=== PATIENT | female | born 1985 | race Two or more races ===

== ENCOUNTER 2018-01-03 11:28 | Emergency (ER) | payer MEDICAID ==
[~2018-01-03] VITALS: Ht 157.5 cm; Wt 127.0 kg
[2018-01-03 12:45] LABS: Eosinophils # (auto) 0.2 uL; Lymphocytes # (auto) 2.4 uL; Neutrophils # (auto) 10.2 uL; Nucleated Red Blood Cells % 0.1 %
[2018-01-03 12:48] LABS: Basophils # (auto) 0.1 uL; Basophils % (auto) 0.4 % (0.0-2.0); Eosinophils % (auto) 1.2 % (0.0-7.0); Hematocrit 42.4 % (36.0-46.0); Hemoglobin 13.3 g/dL (12.2-16.2); Lymphocytes % (auto) 17.5 % (10.0-50.0); Mean Corpuscular Hgb Conc. 31.5 g/dL (32.0-36.0); Mean Corpuscular Volume 79.4 fL (80.0-100.0); Monocytes # (auto) 0.7 uL; Monocytes % (auto) 5.2 % (0.0-12.0); Neutrophils % (auto) 75.7 % (37.0-80.0); Platelet Count (auto) 361 10^3/uL (140-450); Red Blood Cells 5.34 10^6/uL (4.0-5.20); Red Cell Distribution Width 17.7 % (11.8-14.3); White Blood Cell 13.5 10^3/uL (4.4-10.8)
[2018-01-03] MEDS ORDERED: ASPirin 81 mg TAB PO ONE (13:15)
[2018-01-03 13:18] LABS: Albumin 3.4 g/dL (3.4-5.0); BUN/Creatinine Ratio 20.5; Calcium 8.8 mg/dL (8.5-10.1); Magnesium 1.9 mg/dL (1.6-2.6)
[2018-01-03 13:21] LABS: Bilirubin, Total 0.2 mg/dL (0.2-1.0); Total Protein 8.6 g/dL (6.4-8.2)
[2018-01-03 16:18] VITALS: BP 150/85
== END 2018-01-03 16:22 | disposition home or self-care (01) ==
LOC: ER 11:28
DX: J40 Bronchitis, not specified as acute or chronic (principal); I11.0 Hypertensive heart disease with heart failure; E11.9 Type 2 diabetes mellitus without complications; I50.9 Heart failure, unspecified; Z79.82 Long term (current) use of aspirin; Z87.891 Personal history of nicotine dependence
CPT/HCPCS: 36415; 71046; 80053; 83735; 83880; 84484; 85025; 93005

== ENCOUNTER 2018-04-27 15:23 | Inpatient (IN) | payer MEDICAID ==
[~2018-04-27] VITALS: Ht 157.5 cm; Wt 125.1 kg
[2018-04-27 16:46] LABS: Eosinophils # (auto) 0.2 uL; Eosinophils % (auto) 1.7 % (0.0-7.0); Lymphocytes # (auto) 2.3 uL; Neutrophils % (auto) 74.9 % (37.0-80.0)
[2018-04-27 16:48] LABS: Basophils # (auto) 0 uL; Basophils % (auto) 0.4 % (0.0-2.0); Hematocrit 34.7 % (36.0-46.0); Hemoglobin 11.1 g/dL (12.2-16.2); Lymphocytes % (auto) 17.2 % (10.0-50.0); Mean Corpuscular Hgb Conc. 32.1 g/dL (32.0-36.0); Mean Corpuscular Volume 84.2 fL (80.0-100.0); Monocytes # (auto) 0.8 uL; Monocytes % (auto) 5.8 % (0.0-12.0); Neutrophils # (auto) 9.8 uL; Nucleated Red Blood Cells % 0.3 %; Platelet Count (auto) 341 10^3/uL (140-450); Red Blood Cells 4.12 10^6/uL (4.0-5.20); White Blood Cell 13.1 10^3/uL (4.4-10.8)
[2018-04-27 17:01] LABS: Albumin 2.9 g/dL (3.4-5.0); BUN/Creatinine Ratio 23.5; Bilirubin, Total 0.5 mg/dL (0.2-1.0); Calcium 8.3 mg/dL (8.5-10.1); Magnesium 2.3 mg/dL (1.6-2.6); Potassium 3.7 mmol/L (3.5-5.1)
[2018-04-28] MEDS ORDERED: FUROSEMIDE 20 MG/2 ML VIAL IV ONE ×3 (03:15→05:45)
[2018-04-28] MEDS ORDERED: ACETAMINOPHEN 500 MG TAB PO PRN (04:45)
[2018-04-28 05:42] LABS: Basophils # (auto) 0 uL; Eosinophils # (auto) 0.3 uL; Eosinophils % (auto) 2.4 % (0.0-7.0); Mean Corpuscular Hgb Conc. 31.5 g/dL (32.0-36.0); Monocytes # (auto) 0.7 uL; Nucleated Red Blood Cells % 0.3 %
[2018-04-28 05:44] LABS: Urine Bacteria FEW /hpf (None Seen); Urine Blood TRACE /uL (Negative); Urine Specific Gravity 1.006 (1.001-1.035); Urine WBC 6 /hpf (0 - 5)
[2018-04-28 05:44] LABS: Basophils % (auto) 0.2 % (0.0-2.0); Hematocrit 36.9 % (36.0-46.0); Hemoglobin 11.6 g/dL (12.2-16.2); Lymphocytes # (auto) 2.4 uL; Lymphocytes % (auto) 17.6 % (10.0-50.0); Mean Corpuscular Volume 84.7 fL (80.0-100.0); Monocytes % (auto) 5.5 % (0.0-12.0); Neutrophils # (auto) 9.9 uL; Neutrophils % (auto) 74.3 % (37.0-80.0); Platelet Count (auto) 352 10^3/uL (140-450); Red Blood Cells 4.35 10^6/uL (4.0-5.20); Red Cell Distribution Width 18.3 % (11.8-14.3); White Blood Cell 13.4 10^3/uL (4.4-10.8)
[2018-04-28 05:45] LABS: Mean Corpuscular Hemoglobin 26.9 pg (28.0-32.0)
[2018-04-28 05:57] LABS: Alcohol, Urine < 3.0 mg/dL (0-5); Amphetamine Screen, Urine POSITIVE (NEGATIVE); Barbiturate Scree,Urine NEGATIVE (NEGATIVE); Benzodiazephine Screen, Urine NEGATIVE (NEGATIVE); Cannabinoid Screen, Urine NEGATIVE (NEGATIVE); Cocaine Screen, Urine NEGATIVE (NEGATIVE); Opiate Scree,Urine NEGATIVE (NEGATIVE); Phencyclidine Screen, Urine NEGATIVE (NEGATIVE)
[2018-04-28] MEDS ORDERED: METOPROLOL TARTRATE 25 MG TAB ONE (06:03)
[2018-04-28 06:06] LABS: Calcium 8.2 mg/dL (8.5-10.1); Potassium 3.8 mmol/L (3.5-5.1)
[2018-04-28 06:07] LABS: BUN/Creatinine Ratio 21.3
[2018-04-28] MEDS ORDERED: LORazepam 2MG/ML-1ML VIAL IV ONE (06:30)
[2018-04-28] MEDS ORDERED: LORazepam 0.5 MG TAB PO PRN (08:30)
[2018-04-28] MEDS ORDERED: ONDANSETRON HCL 4 MG/2 ML VIAL IV PRN (08:30)
[2018-04-28] MEDS ORDERED: SPIRONOLACTONE 25 MG TAB PO SCH (08:31)
[2018-04-28] MEDS: cefTRIAXone 1GM/10ml IVPUSH 10 ML IV SCH (08:50)
[2018-04-28] MEDS: ASPirin-EC 81 mg tab PO SCH (09:46)
[2018-04-28] MEDS ORDERED: METOPROLOL SUCCINATE XL 50 MG TAB PO SCH (10:00)
[2018-04-28] MEDS: LABETALOL HCL 5 MG/ML ML 20ML VIAL IV PRN ×2 (11:19→14:49)
[2018-04-28] MEDS ORDERED: hydrALAZINE HCL 20 MG/ML VL IV PRN (11:30)
[2018-04-28] MEDS ORDERED: ENALAPRIL MALEATE 2.5 MG TAB PO ONE (11:45)
[2018-04-28] MEDS ORDERED: METOPROLOL SUCCINATE XL 50 MG TAB PO ONE (11:45)
[2018-04-28] MEDS: POTASSIUM CHL 20 Meq TABLET PO SCH (12:04)
[2018-04-28] MEDS ORDERED: METO25TA62 PO (16:11)
[2018-04-28] MEDS ORDERED: SPIR25TA88 PO (16:11)
[2018-04-28] MEDS ORDERED: LISI-646 PO (16:11)
[2018-04-28] MEDS ORDERED: FURO40TA4 PO (16:11)
[2018-04-28] MEDS ORDERED: ASPI325T4 PO (16:11)
[2018-04-28 16:13] VITALS: BP 149/133
[2018-04-28 16:29] VITALS: BP 149/93
[2018-04-28] MEDS: FUROSEMIDE 40 MG/4 ML VIAL IV SCH (18:03)
[2018-04-28 22:00] VITALS: BP 150/103
[2018-04-28] MEDS: ATORVASTATIN 20 MG TAB PO SCH (22:10)
[2018-04-28] MEDS: ENALAPRIL MALEATE 2.5 MG TAB PO SCH (22:11)
[2018-04-29] VITALS (9 sets, daily range): BP systolic 143–168; BP diastolic 78–114
[2018-04-29] MEDS: FUROSEMIDE 40 MG/4 ML VIAL IV SCH ×2 (05:23→17:58)
[2018-04-29 07:08] LABS: Basophils # (auto) 0 uL; Basophils % (auto) 0.3 % (0.0-2.0); Eosinophils # (auto) 0.3 uL; Eosinophils % (auto) 2.9 % (0.0-7.0); Monocytes # (auto) 0.6 uL
[2018-04-29 07:10] LABS: Hematocrit 38.5 % (36.0-46.0); Hemoglobin 12.1 g/dL (12.2-16.2); Lymphocytes # (auto) 1.9 uL; Lymphocytes % (auto) 16.1 % (10.0-50.0); Mean Corpuscular Hemoglobin 26.5 pg (28.0-32.0); Mean Corpuscular Hgb Conc. 31.5 g/dL (32.0-36.0); Mean Corpuscular Volume 84.1 fL (80.0-100.0); Monocytes % (auto) 4.8 % (0.0-12.0); Neutrophils # (auto) 8.7 uL; Neutrophils % (auto) 75.9 % (37.0-80.0); Nucleated Red Blood Cells % 0.2 %; Platelet Count (auto) 350 10^3/uL (140-450); Red Blood Cells 4.58 10^6/uL (4.0-5.20); White Blood Cell 11.5 10^3/uL (4.4-10.8)
[2018-04-29 07:25] LABS: BUN/Creatinine Ratio 20.8; Bilirubin, Total 0.4 mg/dL (0.2-1.0); Calcium 8.8 mg/dL (8.5-10.1); Magnesium 2.1 mg/dL (1.6-2.6); Potassium 3.6 mmol/L (3.5-5.1); Total Protein 7.5 g/dL (6.4-8.2)
[2018-04-29] MEDS ORDERED: SPIRONOLACTONE 25 MG TAB PO SCH (10:00)
[2018-04-29] MEDS: ASPirin-EC 81 mg tab PO SCH (10:09)
[2018-04-29] MEDS: cefTRIAXone 1GM/10ml IVPUSH 10 ML IV SCH (10:09)
[2018-04-29] MEDS: METOPROLOL SUCCINATE XL 50 MG TAB PO SCH (10:09)
[2018-04-29] MEDS: POTASSIUM CHL 20 Meq TABLET PO SCH (10:09)
[2018-04-29] MEDS: ENALAPRIL MALEATE 2.5 MG TAB PO SCH (10:10)
[2018-04-29] MEDS ORDERED: DEXTROSE (50%) 50ML SYRG IV PRN (11:00)
[2018-04-29] MEDS ORDERED: LISINOPRIL 20 MG TAB PO ONE (11:00)
[2018-04-29] MEDS: ACCU-CHEK COMFORT CURVE STRIP VI SCH ×3 (12:39→21:45)
[2018-04-29] MEDS: InsuLIN REG 1unit/0.01ml Soln (100units/ml) SC SCH ×3 (12:40→21:45)
[2018-04-29] MEDS: SPIRONOLACTONE 25 MG TAB PO SCH (21:35)
[2018-04-29] MEDS: ATORVASTATIN 20 MG TAB PO SCH (21:36)
[2018-04-30 04:52] VITALS: BP 147/78
[2018-04-30] MEDS: FUROSEMIDE 40 MG/4 ML VIAL IV SCH ×2 (05:10→17:53)
[2018-04-30] MEDS: InsuLIN REG 1unit/0.01ml Soln (100units/ml) SC SCH ×4 (06:22→21:33)
[2018-04-30] MEDS: ACCU-CHEK COMFORT CURVE STRIP VI SCH ×4 (06:23→21:32)
[2018-04-30 07:10] LABS: Basophils # (auto) 0 uL; Eosinophils # (auto) 0.3 uL; Lymphocytes # (auto) 1.7 uL; Monocytes # (auto) 0.5 uL; Monocytes % (auto) 4.5 % (0.0-12.0); Nucleated Red Blood Cells % 0.1 %
[2018-04-30 07:13] LABS: Basophils % (auto) 0.3 % (0.0-2.0); Eosinophils % (auto) 2.3 % (0.0-7.0); Hematocrit 38.1 % (36.0-46.0); Hemoglobin 12.1 g/dL (12.2-16.2); Lymphocytes % (auto) 14.3 % (10.0-50.0); Mean Corpuscular Hemoglobin 26.7 pg (28.0-32.0); Mean Corpuscular Hgb Conc. 31.8 g/dL (32.0-36.0); Mean Corpuscular Volume 83.9 fL (80.0-100.0); Neutrophils # (auto) 9.3 uL; Neutrophils % (auto) 78.6 % (37.0-80.0); Platelet Count (auto) 305 10^3/uL (140-450); Red Blood Cells 4.55 10^6/uL (4.0-5.20); Red Cell Distribution Width 18.3 % (11.8-14.3); White Blood Cell 11.9 10^3/uL (4.4-10.8)
[2018-04-30 08:00] VITALS: BP 157/115
[2018-04-30 08:12] LABS: Chloride 102 mmol/L (98-107); Potassium 3.8 mmol/L (3.5-5.1); Sodium 139 mmol/L (136-145)
[2018-04-30 08:13] LABS: Anion Gap 11 (5-15); Blood Urea Nitrogen 14 mg/dL (7-18); Calcium 8.5 mg/dL (8.5-10.1); Carbon Dioxide 26 mmol/L (21-32); GFR African American 144 mL/min; GFR Non-African American 119 mL/min; Glucose 131 mg/dL (74-106)
[2018-04-30 08:22] VITALS: BP 150/106
[2018-04-30] MEDS: cefTRIAXone 1GM/10ml IVPUSH 10 ML IV SCH (09:32)
[2018-04-30] MEDS: POTASSIUM CHL 20 Meq TABLET PO SCH (09:32)
[2018-04-30] MEDS: SPIRONOLACTONE 25 MG TAB PO SCH ×3 (09:33→17:47)
[2018-04-30] MEDS: ASPirin-EC 81 mg tab PO SCH (09:33)
[2018-04-30] MEDS: METOPROLOL SUCCINATE XL 50 MG TAB PO SCH (09:33)
[2018-04-30] MEDS: LISINOPRIL 20 MG TAB PO SCH (09:34)
[2018-04-30 12:53] VITALS: BP 155/90
[2018-04-30 16:45] VITALS: BP 162/98
[2018-04-30] MEDS: LABETALOL HCL 5 MG/ML ML 20ML VIAL IV PRN (16:47)
[2018-04-30] MEDS: ATORVASTATIN 20 MG TAB PO SCH (21:32)
[2018-04-30 22:00] VITALS: BP 134/64
[2018-05-01 04:55] VITALS: BP 134/91
[2018-05-01] MEDS: SPIRONOLACTONE 25 MG TAB PO SCH ×2 (06:24→18:05)
[2018-05-01] MEDS: FUROSEMIDE 40 MG/4 ML VIAL IV SCH ×2 (06:24→18:05)
[2018-05-01] MEDS: ACCU-CHEK COMFORT CURVE STRIP VI SCH ×4 (06:24→22:12)
[2018-05-01] MEDS: InsuLIN REG 1unit/0.01ml Soln (100units/ml) SC SCH ×4 (06:25→22:12)
[2018-05-01 08:00] VITALS: BP 157/114
[2018-05-01 08:02] LABS: BUN/Creatinine Ratio 18.1; Calcium 8.7 mg/dL (8.5-10.1)
[2018-05-01 09:20] VITALS: BP 160/98
[2018-05-01] MEDS: POTASSIUM CHL 20 Meq TABLET PO SCH (09:42)
[2018-05-01] MEDS: ASPirin-EC 81 mg tab PO SCH (09:42)
[2018-05-01] MEDS: LISINOPRIL 20 MG TAB PO SCH (09:43)
[2018-05-01] MEDS: METOPROLOL SUCCINATE XL 50 MG TAB PO SCH (09:43)
[2018-05-01 12:30] VITALS: BP 149/101
[2018-05-01 17:03] VITALS: BP 147/85
[2018-05-01 22:08] VITALS: BP 138/89
[2018-05-01] MEDS: ATORVASTATIN 20 MG TAB PO SCH (22:11)
[2018-05-02 05:00] VITALS: BP 94/51
[2018-05-02] MEDS: InsuLIN REG 1unit/0.01ml Soln (100units/ml) SC SCH ×2 (06:11→12:39)
[2018-05-02] MEDS: SPIRONOLACTONE 25 MG TAB PO SCH (06:11)
[2018-05-02] MEDS: ACCU-CHEK COMFORT CURVE STRIP VI SCH ×2 (06:11→12:40)
[2018-05-02] MEDS: FUROSEMIDE 40 MG/4 ML VIAL IV SCH (06:16)
[2018-05-02 08:30] VITALS: BP 148/100
[2018-05-02] MEDS: ASPirin-EC 81 mg tab PO SCH (09:47)
[2018-05-02] MEDS: METOPROLOL SUCCINATE XL 50 MG TAB PO SCH (09:55)
[2018-05-02] MEDS: LISINOPRIL 20 MG TAB PO SCH (09:56)
[2018-05-02] MEDS: POTASSIUM CHL 20 Meq TABLET PO SCH (09:56)
[2018-05-02 11:25] VITALS: BP 124/77
[2018-05-02 11:42] LABS: BUN/Creatinine Ratio 21.6; Calcium 9.1 mg/dL (8.5-10.1)
[2018-05-02 11:59] VITALS: BP 124/77
[2018-05-02 12:30] VITALS: BP 155/109
[2018-05-02 17:15] VITALS: BP 147/112
== END 2018-05-02 16:42 | disposition home or self-care (01) | DRG 133 ==
LOC: ER 15:23 → TELE 15:24 → TELE-CENTR 04-28 15:02
PROVIDERS: ADMIT Nurse Practitioner Family; ATTEND Internal Medicine
DX: J96.20 Acute and chronic respiratory failure, unspecified whether with hypoxia or hypercapnia (principal); I50.43 Acute on chronic combined systolic (congestive) and diastolic (congestive) heart failure; I27.20 Pulmonary hypertension, unspecified; I42.0 Dilated cardiomyopathy; Z68.43 Body mass index [BMI] 50.0-59.9, adult; E11.65 Type 2 diabetes mellitus with hyperglycemia; I11.0 Hypertensive heart disease with heart failure; Z99.81 Dependence on supplemental oxygen; E66.01 Morbid (severe) obesity due to excess calories; N39.0 Urinary tract infection, site not specified; F15.10 Other stimulant abuse, uncomplicated; G47.33 Obstructive sleep apnea (adult) (pediatric); J98.11 Atelectasis; Z87.891 Personal history of nicotine dependence; Z91.14 Patient's other noncompliance with medication regimen
CPT/HCPCS: 36415; 36600; 71045; 80048; 80053; 80061; 80307; 81001; 81025; 82805; 82962; 83036; 83735; 83880; 84484; 84702; 85025; 85379; 87040; 87086; 93005; 93306; 96374; 96375; 96376; J1815